=== PATIENT | female | born 1995 | race Two or more races ===

== ENCOUNTER 2020-08-22 00:32 | Emergency (ER) | payer MEDICAID ==
[~2020-08-22] VITALS: Ht 167.6 cm; Wt 86.2 kg
[2020-08-22 00:55] VITALS: BP 118/79
[2020-08-22] MEDS ORDERED: methylPREDNISolone SOD SUCC 125 MG/2 ML VL IM ONE (01:00)
== END 2020-08-22 01:31 | disposition home or self-care (01) ==
LOC: ER 00:35
DX: T78.40XA Allergy, unspecified, initial encounter (principal); R21 Rash and other nonspecific skin eruption; X58.XXXA Exposure to other specified factors, initial encounter
CPT/HCPCS: 96372; 99283; J2930

== ENCOUNTER 2021-10-02 08:42 | Emergency (ER) | payer MEDICAID ==
[~2021-10-02] VITALS: Ht 154.9 cm; Wt 84.8 kg
[2021-10-02] MEDS ORDERED: ONDANSETRON ODT 4 MG TAB PO ONE (09:15)
[2021-10-02] MEDS ORDERED: SODIUM CHLORIDE 0.9% 1,000 ML IV ONE (09:15)
[2021-10-02 09:19] LABS: Basophils # (auto) 0 10 ^3/uL (0-0.2); Basophils % (auto) 0.3 % (0.0-2.0); Eosinophils # (auto) 0.2 10 ^3/uL (0-0.8); Eosinophils % (auto) 1.9 % (0.0-7.0); Hematocrit 43.2 % (36.0-46.0); Hemoglobin 14.3 g/dL (12.2-16.2); Lymphocytes # (auto) 2.6 10 ^3/uL (0.4-5.4); Lymphocytes % (auto) 30.1 % (10.0-50.0); Mean Corpuscular Hemoglobin 28.8 pg (28.0-32.0); Mean Corpuscular Hgb Conc. 33.2 g/dL (32.0-36.0); Mean Corpuscular Volume 86.8 fL (80.0-100.0); Monocytes # (auto) 0.4 10 ^3/uL (0-1.3); Monocytes % (auto) 4.6 % (0.0-12.0); Neutrophils # (auto) 5.4 10 ^3/uL (1.6-8.6); Neutrophils % (auto) 63.1 % (37.0-80.0); Red Blood Cells 4.98 10^6/uL (4.0-5.20); White Blood Cell 8.6 10^3/uL (4.4-10.8)
[2021-10-02 09:34] LABS: Urine Bacteria FEW /hpf (None Seen); Urine Blood TRACE /uL (Negative); Urine Mucus FEW (None Seen); Urine Specific Gravity 1.025 (1.001-1.035); Urine WBC 60 /hpf (0 - 5)
[2021-10-02 10:10] LABS: Albumin 3.9 g/dL (3.4-5.0); BUN/Creatinine Ratio 19.3; Calcium 9.3 mg/dL (8.5-10.1); Potassium 3.6 mmol/L (3.5-5.1)
[2021-10-02 10:26] LABS: Bilirubin, Total 0.4 mg/dL (0.2-1.0); Total Protein 7.1 g/dL (6.4-8.2)
[2021-10-02 10:57] VITALS: BP 102/71
== END 2021-10-02 10:58 | disposition home or self-care (01) ==
LOC: ER 08:42
DX: R10.13 Epigastric pain (principal); R11.0 Nausea; Z88.8 Allergy status to other drugs, medicaments and biological substances
CPT/HCPCS: 36415; 74176; 80053; 81001; 81025; 83690; 85025; 96360; 99284; J7030

== ENCOUNTER 2022-01-17 05:16 | Emergency (ER) | payer MEDICAID ==
[~2022-01-17] VITALS: Ht 162.6 cm; Wt 88.5 kg
[2022-01-17 05:24] VITALS: BP 126/82
[2022-01-17 06:29] LABS: Basophils # (auto) 0.2 10 ^3/uL (0-0.2); Eosinophils # (auto) 0.2 10 ^3/uL (0-0.8); Eosinophils % (auto) 2.3 % (0.0-7.0); Hematocrit 37.1 % (36.0-46.0); Hemoglobin 12.7 g/dL (12.2-16.2); Lymphocytes % (auto) 21.5 % (10.0-50.0); Mean Corpuscular Hemoglobin 29.2 pg (28.0-32.0); Mean Corpuscular Hgb Conc. 34.3 g/dL (32.0-36.0); Mean Corpuscular Volume 85.2 fL (80.0-100.0); Monocytes # (auto) 0.4 10 ^3/uL (0-1.3); Neutrophils # (auto) 6.5 10 ^3/uL (1.6-8.6); Neutrophils % (auto) 70.2 % (37.0-80.0); Nucleated Red Blood Cells % 0.1 %; Red Blood Cells 4.35 10^6/uL (4.0-5.20); Red Cell Distribution Width 12.9 % (11.8-14.3); White Blood Cell 9.2 10^3/uL (4.4-10.8)
[2022-01-17 06:42] LABS: Urine Bacteria NONE SEEN /hpf (None Seen); Urine Blood Negative /uL (Negative); Urine Specific Gravity 1.021 (1.001-1.035); Urine WBC 2 /hpf (0 - 5)
[2022-01-17 06:48] LABS: Albumin 3.9 g/dL (3.4-5.0); Calcium 8.9 mg/dL (8.5-10.1); Potassium 3.5 mmol/L (3.5-5.1)
[2022-01-17 06:52] LABS: BUN/Creatinine Ratio 23.2; Bilirubin, Total 0.4 mg/dL (0.2-1.0); Total Protein 7.5 g/dL (6.4-8.2)
[2022-01-17] MEDS ORDERED: NITR-87 PO (07:34)
[2022-01-17] MEDS ORDERED: IBUP800T27 PO (07:34)
[2022-01-17] MEDS ORDERED: IBUPROFEN 600 MG TAB PO ONE (07:45)
== END 2022-01-17 07:45 | disposition home or self-care (01) ==
LOC: ER 05:16
DX: R07.89 Other chest pain (principal); N39.0 Urinary tract infection, site not specified; Z79.899 Other long term (current) drug therapy; Z79.1 Long term (current) use of non-steroidal anti-inflammatories (NSAID); Z88.8 Allergy status to other drugs, medicaments and biological substances
CPT/HCPCS: 36415; 71046; 80053; 81001; 81025; 83880; 84484; 85025; 93005

== ENCOUNTER 2022-04-23 01:28 | Emergency (ER) | payer MEDICAID ==
[~2022-04-23] VITALS: Ht 162.6 cm; Wt 82.0 kg
[~2022-04-23 01:28] MED LIST: IBUP800T27 PO; NITR-87 PO
[2022-04-23 03:35] LABS: Urine Bacteria NONE SEEN /hpf (None Seen); Urine Blood Negative /uL (Negative); Urine Specific Gravity 1.007 (1.001-1.035); Urine WBC 4 /hpf (0 - 5)
[2022-04-23] MEDS ORDERED: CYCL-837 PO (03:40)
[2022-04-23] MEDS ORDERED: IBUP800T27 PO (03:40)
[2022-04-23] MEDS ORDERED: KETOROLAC TROMETH 60MG/2ML VIAL IM ONE (03:45)
[2022-04-23 03:51] VITALS: BP 112/70
== END 2022-04-23 03:51 | disposition home or self-care (01) ==
LOC: ER 01:31
DX: M54.59 Other low back pain (principal)
CPT/HCPCS: 81001; 81025; 96372; 99283; J1885